=== PATIENT | female | born 1930 | race Caucasian/White ===

== ENCOUNTER 2016-11-19 10:27 | Day surgery (SDC) | payer OTHER ==
--- NOTE | ~2016-11-19 | OP ---
Record Of Operation [facility] [address] [place]. [address] NAME: ROSALIE DUPREE : 28 STATUS : [facility]#: [id number] AGE: 86 ADM/REG DATE : 11/19/16 MR#: [id number] REPORT SERV DATE: 11/19/16 DICTATED BY: TORO DUARTE DATE: 11/19/16 REPORT STATUS : Draft TRANSCRIBED BY: MODLeon DATE: 11/19/16 DATE OF PROCEDURE: 11/19/2016 PREOPERATIVE DIAGNOSIS: Left breast invasive ductal cancer. POSTOP DIAGNOSIS: Left breast invasive ductal cancer. PROCEDURE: Left breast segmentectomy. INDICATION FOR THE PROCEDURE: Ms Dupree is an 86-year-old, quite demented, female with newly diagnosed grade 1, ER/DE positive, HER2 negative breast cancer with a growth fraction considerably high at 70% to 80%. The patient was given the option of antihormone therapy only, which I thought was a good option for her. 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 We are planning on a segmentectomy only and are not planning on the sentinel node biopsy. OPERATIVE FINDINGS: After appropriate consent was on the chart, the patient was taken to the operating room in supine position. She was placed under monitored anesthesia without complication. The left breast was prepped and draped in sterile fashion. An incision was made over the palpable tumor at the 11 o'clock position. Incision included an ellipse of skin. Sharp dissection was carried around the tumor with Bovie cauterization. A generous dissection was performed, however, the tissue near the patient's nipple-areolar complex was quite dense naturally. A generous segment of tissue measuring approximately 7 x 5 cm was taken down to the level just above the muscle. Immediate evaluation by Pathology, and Pathology did feel that we may end up having DCIS of the margins in multiple areas, however, invasive tumor does come up to the deep inferior midpoint, a large additional specimen was taken in this area including the deep margin, inferior margin, and portions of the medial and lateral margins. This was labeled as deep inferior margin. The wound was copiously irrigated with warm saline and hemostasis was achieved. Local anesthetic was infiltrated on the skin and soft tissues and the incision closed in two layers of Monocryl. A single layer of Vicryl was utilized to try to cover the deep tissues. The skin was cleansed and dried. Dermabond was applied. Burn fluff and a binder placed on the patient prior to awakening. She was awoken from anesthesia and taken to the PACU in stable condition for recovery. All counts were correct at the end of the case. ESTIMATED BLOOD LOSS: 25 mL. COMPLICATIONS: None. SPECIMEN: Left breast 12 o'clock segment and new deep inferior margin left breast. SHIVA/GEMA Record Of [address] [address] NAME: ROSALIE DUPREE : 28 STATUS : [facility] PAT#: [id number] AGE: 86 ADM/REG DATE : 11/19/16 MR#: [id number] REPORT SERV DATE: 11/19/16 DICTATED BY: TORO DUARTE DATE: 11/19/16 REPORT STATUS : Draft TRANSCRIBED BY: GEMA DATE: 11/19/16 Toro Duarte MD / [id number] CC: MD Jag Valle M.D. [facility] Jr., M.D. [facility]
[~2016-11-19 10:27] MED LIST: ASAB PO; TOPXL25 PO; Z300 PO; ZESTORETIC1 TA1 PO
[2016-11-19 11:32] LABS: HEMATOCRIT 37.4 % (36.0-48.0); HEMOGLOBIN 12.1 g/dL (12.0-16.0)
[2016-11-19 11:45] LABS: A/G RATIO 1.2 (0.7-1.9); ALBUMIN 3.9 G/DL (3.5-5.0); ALKALINE PHOSPHATASE 143 U/L (45-117); BUN (BLOOD UREA NITROGEN) 40 MG/DL (6-23); CHLORIDE, SERUM 107 MMOL/L (96-112); CO2 (CARBON DIOXIDE) 26 MMOL/L (24-34); CREATININE 1.58 MG/DL (0.55-1.02); GFR AFRICAN AMERICAN 34 ML/MIN (>=60); GFR NON AFRICAN AMERICAN 29 ML/MIN (>=60); GLOBULIN 3.3 G/DL (2.5-4.1); GLUCOSE, SERUM 101 MG/DL (60-99); SGOT(AST) 16 U/L (5-40); SGPT(ALT) 14 U/L (5-65); SODIUM, SERUM 142 MMOL/L (135-148); TOTAL BILIRUBIN 0.9 MG/DL (0-1.2); TOTAL PROTEIN 7.2 G/DL (6.0-8.5)
== END 2016-11-19 14:54 | disposition home or self-care (01) ==
LOC: SDC 10:27
PROVIDERS: Surgery Surgical Oncology
PROC: 0BBL0ZZ Excision of Left Lung, Open Approach (ICD-10-PCS; principal; 2016-11-19 11:45)
DX: C50.912 Malignant neoplasm of unspecified site of left female breast (principal); F03.90 Unspecified dementia, unspecified severity, without behavioral disturbance, psychotic disturbance, mood disturbance, and anxiety; I48.91 Unspecified atrial fibrillation; I25.10 Atherosclerotic heart disease of native coronary artery without angina pectoris; I10 Essential (primary) hypertension; Z98.890 Other specified postprocedural states
CPT/HCPCS: 71010; 80053; 85014; 85018; 88305; 88307; 88311; 88331; 88332; J0690; J2370; J3010